=== PATIENT | female | born 1975 | race Caucasian/White ===

== ENCOUNTER 2020-02-17 12:00 | Emergency (ER) | payer BC | END 2020-02-17 13:18 | disposition home or self-care (01) | LOC: ERS 12:00 | DX: L03.116 Cellulitis of left lower limb (principal); Z87.891 Personal history of nicotine dependence | CPT/HCPCS: 99283 ==

== ENCOUNTER 2020-06-29 10:32 | Outpatient (CLI) | payer BC ==
--- NOTE | 2020-06-29 11:50 | MMO ---
Bilateral MAMMO Bilat Screen [facility]. CLINICAL HISTORY: Patient is 44 years old and is seen for screening. The patient has no family history of breast cancer. The patient has no personal history of cancer. VIEWS: The views performed were: bilateral craniocaudal with tomosynthesis and bilateral mediolateral oblique with tomosynthesis. This study has been interpreted with the assistance of computer-aided detection. MAMMOGRAM FINDINGS: There are scattered fibroglandular densities. There are no suspicious masses, suspicious calcifications, or new areas of architectural distortion. IMPRESSION: THERE IS NO MAMMOGRAPHIC EVIDENCE OF MALIGNANCY. A ROUTINE FOLLOW-UP MAMMOGRAM IN 1 YEAR IS RECOMMENDED. THE RESULTS OF THIS EXAM WERE SENT TO THE PATIENT. ACR BI-RADS Category 1 - Negative MAMMOGRAPHY NOTE: 1. A negative mammogram report should not delay a biopsy if a dominant of clinically suspicious mass is present. 2. Approximately 10% to 15% of breast cancers are not detected by mammography. 3. Adenosis and dense breasts may obscure an underlying neoplasm. Reported by: LEV JENKINS MD Electonically Signed: [id number]
== END 2020-06-29 10:33 | disposition home or self-care (01) ==
LOC: BICMAMMO 10:32
PROVIDERS: ATTEND Nurse Practitioner Women's Health
DX: Z12.31 Encounter for screening mammogram for malignant neoplasm of breast (principal)
CPT/HCPCS: 77063; 77067

== ENCOUNTER 2020-09-28 10:06 | Emergency (ER) | payer BC ==
[2020-09-28] MEDS ORDERED: Ibuprofen 200 MG TAB ONE (10:46)
--- NOTE | 2020-09-28 10:59 | RAD ---
RIGHT ANKLE 3 VIEWS: Date: 09/28/2020 HISTORY: Ankle injury. FINDINGS: Calcaneal spurs are present. There are no signs of fracture, dislocation, or joint effusion. IMPRESSION: No acute injury. POS: [facility]
== END 2020-09-28 12:06 | disposition home or self-care (01) ==
LOC: ERS 10:06
DX: S93.401A Sprain of unspecified ligament of right ankle, initial encounter (principal); Z87.891 Personal history of nicotine dependence; W10.9XXA Fall (on) (from) unspecified stairs and steps, initial encounter

== ENCOUNTER 2020-11-15 16:30 | Observation (INO) | payer BC ==
[~2020-11-15 16:30] MED LIST: Iopamidol-370 76% 500 ML 1 ML ONE
[2020-11-15] MEDS ORDERED: Aspirin Chewable 81 MG TAB ONE (17:03)
[2020-11-15] MEDS ORDERED: Nitroglycerin 2% Ointment 1 INCH/1 GM Packet ONE ×2 (17:03→22:06)
[2020-11-15 17:08] LABS: #Basophils 0.1 thou/uL (0.0-0.2); #Eosinphils 0.1 thou/uL (0.0-0.7); #Monocytes 0.9 thou/uL (0.11-0.59); %Basophils 1.2 % (0.0-1.0); %Eosinophils 1.3 % (0.0-10.0); %Lymphocytes 38.9 % (21.0-51.0); %Monocytes 9.3 % (0.0-10.0); %Neutrophils 49.3 % (42.0-75.0); Mean Corpuscular HGB CONC 33.9 g/dL (32.0-36.0); Mean Corpuscular Hemoglobin 35.2 pg (27.0-31.0); Mean Platelet Volume 6.6 fL (7.4-10.4); Platelet Count 290 thou/uL (130-400); Red Blood Cell (RBC) Count 4.26 mill/uL (4.20-5.40); White Blood Cell (WBC) Count 10.1 thou/uL (4.8-10.8)
[2020-11-15 17:34] LABS: ALT (SGPT) 34 U/L (8-55); AST (SGOT) 31 U/L (5-34); Albumin 4.2 g/dL (3.5-5.0); Alkaline Phosphatase 97 U/L (40-110); Anion Gap 13 mmol/L (10-20); BUN (Urea Nitrogen) 14 mg/dL (7.0-18.7); Bilirubin, Total 0.5 mg/dL (0.2-1.2); CK (CPK) 232 U/L (29-168); Calc. Creatinine Clearance 0 mL/min (70-130); Calcium 9.2 mg/dL (7.8-10.44); Carbon Dioxide 22 mmol/L (22-29); Chloride 107 mmol/L (98-107); Globulin 3.3 g/dL (2.4-3.5); Glucose 107 mg/dL (70-105); Lipase 21 U/L (8-78); Potassium 3.8 mmol/L (3.5-5.1); Protein, Total 7.5 g/dL (6.0-8.3); Sodium 138 mmol/L (136-145)
[2020-11-15 17:44] LABS: BHCG - Serum Negative (NEGATIVE); Pregs Control Background? CLEAR/WHITE (CLR/WHITE); Pregs Control Bar Appear? YES (CONTROL BAR)
[2020-11-15 17:57] LABS: Acetaminophen Less than 6.0 mcg/mL (10.0-30.0); Alcohol Less than 10 mg/dL (Less than 10); Salicylate Less than 8.0 mg/dL (15.0-30.0)
[2020-11-15 19:06] LABS: Bacteria/HPF None Seen HPF (None Seen); Bilirubin Negative (Negative); Blood, Urine Trace (Negative); Clarity Clear (Clear); Glucose, Urine (Dipstick) Normal (Negative); Ketone, Urine Negative (Negative); Leukocyte Negative Leu/uL (Negative); Nitrite Negative (Negative); Protein, Urine (Dipstick) Negative (Neg-Trace); RBC/HPF 0-3 HPF (0-3); Specific Gravity, Urine 1.006 (1.002-1.036); Squamous Epithelial 0-3 HPF (0-3); Urobilinogen Normal mg/dL (Less than 2); WBC/HPF 0-3 HPF (0-3)
[2020-11-15 19:12] LABS: Amphetamine Not Detected (NotDetected); Barbiturates Screen Not Detected (NotDetected); Benzodiazepine Screen Not Detected (NotDetected); Cocaine Metabolite Screen Not Detected (NotDetected); Medtox Control Line Valid? VALID (VALID); Medtox Reader # READER 4; Methadone Not Detected (NotDetected); Methamphetamine Not Detected (NotDetected); Opiate Screen Not Detected (NotDetected); Oxycodone Screen Not Detected (NotDetected); Phencyclidine (PCP) Not Detected (NotDetected); THC/Cannabinoid Screen Not Detected (NotDetected); Tricyclic Screen Not Detected (NotDetected)
[2020-11-15] MEDS ORDERED: Ondansetron PF 4 MG/2 ML Vial IVP PRN (20:25)
[2020-11-15] MEDS ORDERED: hydrALAZINE 20 MG/ML VIAL SLOW IVP PRN (20:29)
[2020-11-15 20:51] LABS: Troponin I Less than 0.010 ng/mL (< 0.028)
[2020-11-15] MEDS: Nitroglycerin 2% Ointment 1 INCH/1 GM Packet TOP SCH (22:08)
[2020-11-15 23:35] LABS: Troponin I 0.012 ng/mL (< 0.028)
[2020-11-16] MEDS ORDERED: Acetaminophen 325 MG TAB ONE ×2 (04:07→08:19)
[2020-11-16] MEDS: Acetaminophen 325 MG TAB PO PRN ×2 (04:11→08:23)
[2020-11-16 04:54] LABS: Anion Gap 10 mmol/L (10-20); BUN (Urea Nitrogen) 12 mg/dL (7.0-18.7); Calc. Creatinine Clearance 0 mL/min (70-130); Calcium 8.7 mg/dL (7.8-10.44); Carbon Dioxide 24 mmol/L (22-29); Chloride 108 mmol/L (98-107); Glucose 95 mg/dL (70-105); Potassium 4.4 mmol/L (3.5-5.1); Sodium 138 mmol/L (136-145)
[2020-11-16 05:08] LABS: #Basophils 0.1 thou/uL (0.0-0.2); #Eosinphils 0.1 thou/uL (0.0-0.7); #Lymphocytes 3.3 thou/uL (1.20-3.40); #Monocytes 0.9 thou/uL (0.11-0.59); %Basophils 1.3 % (0.0-1.0); %Eosinophils 1.6 % (0.0-10.0); %Lymphocytes 35.2 % (21.0-51.0); %Monocytes 9.4 % (0.0-10.0); %Neutrophils 52.6 % (42.0-75.0); Hemoglobin 14.2 g/dL (12.0-16.0); Mean Corpuscular HGB CONC 33.6 g/dL (32.0-36.0); Mean Corpuscular Hemoglobin 35.1 pg (27.0-31.0); Mean Platelet Volume 6.5 fL (7.4-10.4); Platelet Count 253 thou/uL (130-400); RBC Distribution Width 11.9 % (11.5-14.5); Red Blood Cell (RBC) Count 4.04 mill/uL (4.20-5.40); White Blood Cell (WBC) Count 9.4 thou/uL (4.8-10.8)
[2020-11-16 05:36] LABS: SARS-CoV-2 PCR by NAA Not Detected (NotDetected)
[2020-11-16] MEDS: Nitroglycerin 2% Ointment 1 INCH/1 GM Packet TOP SCH ×2 (06:02→14:27)
[2020-11-16] MEDS ORDERED: Calcium Carbonate 500 MG ChewTAB PO PRN (07:40)
[2020-11-16] MEDS ORDERED: GUAIFENESIN SF SOLN 200 MG/10 ML UDCUP PO PRN (07:40)
[2020-11-16] MEDS ORDERED: Zolpidem Tartrate 5 MG TAB PO PRN (07:40)
[2020-11-16] MEDS ORDERED: HYDROcodone/Acetaminophen 5/325 mg Tablet PO PRN (07:40)
[2020-11-16] MEDS ORDERED: Loperamide HCl 2 MG CAP PO PRN (07:40)
[2020-11-16] MEDS ORDERED: Senokot S 8.6-50 MG TAB PO PRN (07:40)
[2020-11-16] MEDS ORDERED: Loratadine 10 MG TAB PO PRN (07:40)
[2020-11-16] MEDS ORDERED: Aspirin Chewable 81 MG TAB ONE (08:19)
[2020-11-16] MEDS ORDERED: Amlodipine 5 MG TAB PO SCH (09:00)
[2020-11-16] MEDS ORDERED: Aspirin Chewable 81 MG TAB PO SCH (09:00)
[2020-11-16 12:05] VITALS: TEMP 98.3
[2020-11-16 12:10] VITALS: BMI 38.9
[2020-11-16 14:30] VITALS: BP 133/93
[2020-11-16] MEDS ORDERED: ADENOSINE 60 MG/20 ML VIAL ONE (14:49)
[2020-11-18] MEDS ORDERED: Enoxaparin Sodium 40 MG/0.4 ML SYRINGE SC SCH (09:00)
== END 2020-11-16 15:19 | disposition home or self-care (01) ==
LOC: ERS 16:30 → ERHOLD 19:59 → 2SW 11-16 12:03
PROVIDERS: ADMIT Internal Medicine; ATTEND Internal Medicine
DX: R07.89 Other chest pain (principal); I10 Essential (primary) hypertension; Z87.891 Personal history of nicotine dependence; Z82.49 Family history of ischemic heart disease and other diseases of the circulatory system; Z88.8 Allergy status to other drugs, medicaments and biological substances; Z20.822 Contact with and (suspected) exposure to COVID-19
CPT/HCPCS: 36415; 71045; 71275; 78452; 80048; 80053; 80306; 80307; 81003; 81015; 82550; 83690; 83880; 84484; 84703; 85025; 85379; 87635; 93005; 93017; A9500; G0378; J0153; Q9967; U0003; U0005

== ENCOUNTER 2022-06-04 08:52 | Outpatient (CLI) | payer OTHER | END 2022-06-04 08:53 | disposition home or self-care (01) | LOC: BICMAMMO 08:52 | PROVIDERS: ATTEND Nurse Practitioner Women's Health | DX: N63.15 Unspecified lump in the right breast, overlapping quadrants (principal) | CPT/HCPCS: 77066; G0279 ==

== ENCOUNTER 2023-06-19 09:20 | Emergency (ER) | payer SELFPAY ==
[2023-06-19] MEDS ORDERED: Iopamidol-370 76% 500 ML MDV (1 ML CHARGE) ONE (09:27)
[2023-06-19] MEDS ORDERED: Famotidine/PF 20 mg/2ml Vial ONE (10:02)
[2023-06-19] MEDS ORDERED: Acetaminophen 500 MG TAB ONE (10:02)
[2023-06-19] MEDS ORDERED: Ketorolac Tromethamine 30 MG/ML VIAL ONE (10:02)
[2023-06-19 10:35] LABS: Troponin I Less than 0.010 ng/mL (< 0.028)
== END 2023-06-19 11:31 | disposition home or self-care (01) ==
LOC: ERS 09:20
DX: R07.9 Chest pain, unspecified (principal); R00.1 Bradycardia, unspecified; I10 Essential (primary) hypertension; F17.210 Nicotine dependence, cigarettes, uncomplicated
CPT/HCPCS: 36415; 71275; 74174; 83690; 93005; 96374; 96375; J1885; Q9967; S0028